=== PATIENT | female | born 2000 | race American Indian/Alaskan Native ===

== ENCOUNTER 2020-08-13 22:39 | Emergency (ER) | payer OTHER ==
[2020-08-13] MEDS ORDERED: MORPHINE 4 MG/1 ML INJ IV ONE (23:36)
[2020-08-13] MEDS ORDERED: ONDANSETRON 4 MG/2 ML INJ IV ONE (23:36)
[2020-08-14 00:14] LABS: Basophils % (Auto) 0.2 % (0.0-1.8); Eosinophils % (Auto) 0.2 % (0.0-4.3); Hematocrit 31.1 % (30.3-42.9); Hemoglobin 10.3 gm/dl (10.1-14.3); Lymphocytes # (Auto) 1.3 K/mm3 (1.2-5.4); Lymphocytes % (Auto) 10.1 % (13.4-35.0); Mean Corpuscular HGB Conc 33 % (30-34); Mean Corpuscular Volume 86 fl (79-97); Monocytes # (Auto) 0.5 K/mm3 (0.0-0.8); Monocytes % (Auto) 4.2 % (0.0-7.3); Platelet Count 208 K/mm3 (140-440); Red Blood Count 3.63 M/mm3 (3.65-5.03); Red Cell Distribution Width 16.3 % (13.2-15.2)
--- NOTE | 2020-08-14 00:35 | Emergency Department Report ---
ED Female HPI - General Chief complaint: Vaginal Bleeding Stated complaint: VAGINAL BLEEDING Time Seen by Provider: 08/13/20 23:36 Source: EMS Mode of arrival: Wheelchair Limitations: No Limitations - History of Present Illness Initial comments: Patient is a 20-year-old female presents emergency room with complaints of heavy vaginal bleeding. Patient states that she was approximately 3 months based on LMP (05/07/2020), she states that she went to her PLUG DRILL OPERATOR and was advised that her gestational sac appeared to only be approximately 7 weeks. She states that she goes to [facility]. She states that she was diagnosed with demise. She states that today she was given 4 tablets of misoprostol. She states that she was having significantly heavy bleeding and that it was filling her bathtub. She states that she was having severe abdominal pain. She was able to pass the gestational sac while in the emergency department she said that her pain is relieved. She continues to have bleeding. She denies any fever, nausea, vomiting, diarrhea, back pain, abnormal vaginal discharge, dysuria. This was her first . No past medical history. No allergies medications. - Related Data Previous Rx's Medication Instructions Recorded Last Taken Type Ibuprofen [Motrin 600 MG tab] 600 mg PO Q8H PRN #14 tablet 08/14/20 Unknown Rx Allergies Allergy/AdvReac Type Severity Reaction Status Date / Time No Known Allergies Allergy Verified 08/14/20 01:53 ED Review of Systems ROS: Stated complaint: VAGINAL BLEEDING Other details as noted in HPI Comment: All other systems reviewed and negative ED Past Medical Hx - Past Medical History Previous Medical History?: No - Social History Smoking Status: Never Smoker Substance Use Type: None - Medications Home Medications: Home Medications Medication Instructions Recorded Confirmed Last Taken Type Ibuprofen [Motrin 600 MG tab] 600 mg PO Q8H PRN #14 tablet 08/14/20 Unknown Rx ED Physical Exam - General Limitations: No Limitations General appearance: alert, in no apparent distress - Head Head exam: Present: atraumatic, normocephalic - Eye Eye exam: Present: normal appearance - ENT ENT exam: Present: mucous membranes moist - Respiratory Respiratory exam: Present: normal lung sounds bilaterally. Absent: respiratory distress, wheezes, rales, rhonchi, stridor, chest wall tenderness, accessory muscle use, decreased breath sounds, prolonged expiratory - Cardiovascular Cardiovascular Exam: Present: regular rate, normal rhythm, normal heart sounds. Absent: systolic murmur, diastolic murmur, rubs, gallop - GI/Abdominal GI/Abdominal exam: Present: soft, normal bowel sounds. Absent: distended, tenderness, guarding, rebound, rigid - Speculum exam: Present: other (neuropsychiatric aide: franklyn, tech, there is active bleeding present, there are clots in the vaginal vault, cervical os is open and appears to be product of conception at the opening, attempted to use forceps but unable to remove) - Neurological Exam Neurological exam: Present: alert, oriented X3 - Psychiatric Psychiatric exam: Present: normal affect, normal mood - Skin Skin exam: Present: warm, dry, intact ED Course Vital Signs 08/13/20 23:41 Temperature 99.8 F H Pulse Rate 87 Respiratory 14 Rate Blood Pressure 108/67 [Right] O2 Sat by Pulse 98 Oximetry - Consultations Consultation #1: 08/14/20 01:[address] Bangura, PLUG DRILL OPERATOR he advised to give patient Methergine 0.2 mg IM and he will evaluate patient in the emergency department 08/14/20 02:33 Dr. Bangura, PLUG DRILL OPERATOR is at bedside with patient 08/14/20 02:[address] Bangura, INTEL ANALYST at bedside for patient's pelvic examination, he was able to remove some tissue from the opening of the cervix, patient states that she did not want to continue with any further removal and states that she will come back if her symptoms worsen, he advised to write patient ibuprofen and have her follow-up with PLUG DRILL OPERATOR and patient was given strict return precautions ED Medical Decision Making - Lab Data Result diagrams: 08/14/20 00:01 08/14/20 00:01 Lab Results 08/14/20 08/14/20 08/14/20 Range/Units 00:01 00:01 00:01 WBC 12.6 H (4.5-11.0) K/mm3 RBC 3.63 L (3.65-5.03) M/mm3 Hgb 10.3 (10.1-14.3) gm/dl Hct 31.1 (30.3-42.9) % MCV 86 (79-97) fl MCH 28 (28-32) pg MCHC 33 (30-34) % RDW 16.3 H (13.2-15.2) % Plt Count 208 (140-440) K/mm3 Lymph % (Auto) 10.1 L (13.4-35.0) % Kidder % (Auto) 4.2 (0.0-7.3) % Eos % (Auto) 0.2 (0.0-4.3) % Baso % (Auto) 0.2 (0.0-1.8) % Lymph # (Auto) 1.3 (1.2-5.4) K/mm3 Kidder # (Auto) 0.5 (0.0-0.8) K/mm3 Eos # (Auto) 0.0 (0.0-0.4) K/mm3 Baso # (Auto) 0.0 (0.0-0.1) K/mm3 Seg Neutrophils % 85.3 H (40.0-70.0) % Seg Neutrophils # 10.7 H (1.8-7.7) K/mm3 Sodium 134 L (137-145) mmol/L Potassium 4.5 (3.6-5.0) mmol/L Chloride 105.1 (98-107) mmol/L Carbon Dioxide 17 L (22-30) mmol/L Anion Gap 16 mmol/L BUN 5 L (7-17) mg/dL Creatinine 0.5 L (0.6-1.2) mg/dL Estimated GFR > 60 ml/min BUN/Creatinine Ratio 10 % Glucose 159 H (65-100) mg/dL Calcium 8.2 L (8.4-10.2) mg/dL Total Bilirubin < 0.20 (0.1-1.2) mg/dL AST 25 (5-40) units/L ALT 11 (7-56) units/L Alkaline Phosphatase 81 (35-129) units/L Total Protein 6.2 L (6.3-8.2) g/dL Albumin 3.2 L (3.9-5) g/dL Albumin/Globulin Ratio 1.1 % HCG, Quant 551.9 H (0-4) mIU/mL Blood Type 08/14/20 Range/Units 00:01 WBC (4.5-11.0) K/mm3 RBC (3.65-5.03) M/mm3 Hgb (10.1-14.3) gm/dl Hct (30.3-42.9) % MCV (79-97) fl MCH (28-32) pg MCHC (30-34) % RDW (13.2-15.2) % Plt Count (140-440) K/mm3 Lymph % (Auto) (13.4-35.0) % Kidder % (Auto) (0.0-7.3) % Eos % (Auto) (0.0-4.3) % Baso % (Auto) (0.0-1.8) % Lymph # (Auto) (1.2-5.4) K/mm3 Kidder # (Auto) (0.0-0.8) K/mm3 Eos # (Auto) (0.0-0.4) K/mm3 Baso # (Auto) (0.0-0.1) K/mm3 Seg Neutrophils % (40.0-70.0) % Seg Neutrophils # (1.8-7.7) K/mm3 Sodium (137-145) mmol/L Potassium (3.6-5.0) mmol/L Chloride (98-107) mmol/L Carbon Dioxide (22-30) mmol/L Anion Gap mmol/L BUN (7-17) mg/dL Creatinine (0.6-1.2) mg/dL Estimated GFR ml/min BUN/Creatinine Ratio % Glucose (65-100) mg/dL Calcium (8.4-10.2) mg/dL Total Bilirubin (0.1-1.2) mg/dL AST (5-40) units/L ALT (7-56) units/L Alkaline Phosphatase (35-129) units/L Total Protein (6.3-8.2) g/dL Albumin (3.9-5) g/dL Albumin/Globulin Ratio % HCG, Quant (0-4) mIU/mL Blood Type O NEGATIVE - Radiology Data Radiology results: report reviewed Ordering Physician: JESSE OCAMPO Date of Service: 08/13/20 Procedure(s): US OB <= 14 weeks fetus Accession Number(s): [id number] cc: JESSE OCAMPO ULTRASOUND PELVIS INDICATION: demise, pill , heavy bleeding/clots. TECHNIQUE: Transabdominal. Duplex Color Doppler used: Yes. COMPARISON: None available FINDINGS: Uterus: Present. Size: 8.9 x 4.9 x 5.3 cm. Endometrial complex: No retained products or intrauterine . measuring 4.9 cm. Mass lesions: None. Additional findings: None. Right Ovary --nonvisualized. Left Ovary--nonvisualized. Urinary Bladder: Normal. Free Fluid: Mild. Additional Findings: None. IMPRESSION: 1. No intrauterine or retained products. 2. Mild free fluid. 3. Ovaries nonvisualized. No adnexal abnormality. Signer Name: Erik Holder MD Signed: 08/14/2020 1:28 AM Workstation Name: [id number] Transcribed By: YOUNG Dictated By: Erik Holder MD Electronically Authenticated By: Erik Holder MD Signed Date/Time: 08/14/20127 DD/ 6 TD/TT: - Medical Decision Making Patient is a 20-year-old female presents emergency room with complaints of heavy vaginal bleeding. Patient states that she was approximately 3 months based on LMP (05/07/2020), she states that she went to her PLUG DRILL OPERATOR and was advised that her gestational sac appeared to only be approximately 7 weeks. She states that she goes to [facility]. She states that she was diagnosed with demise. She states that today she was given 4 tablets of misoprostol. She states that she was having significantly heavy bleeding and that it was filling her bathtub. She states that she was having severe a bdominal pain. She was able to pass the gestational sac while in the emergency department she said that her pain is relieved. She continues to have bleeding. She denies any fever, nausea, vomiting, diarrhea, back pain, abnormal vaginal discharge, dysuria. This was her first . No past medical history. No allergies medications. Vitals are stable. Labs with mildly elevated white blood Cell count at 12, hCG quant is 551, patient is Rh-. OB ultrasound: 1. No intrauterine or retained products. 2. Mild free fluid. 3. Ovaries nonvisualized. No adnexal abnormality. Pelvic examination:neuropsychiatric aide: franklyn, tech, there is active bleeding present, there are clots in the vaginal vault, cervical os is open and appears to be product of conception at the opening, attempted to use forceps but unable to remove. Spoke with Dr. Bangura, PLUG DRILL OPERATOR he advised to give patient Methergine 0.2 mg IM and he will evaluate patient in the emergency department. Chaperoned Dr. Bangura, INTEL ANALYST at bedside for patient's pelvic examination, he was able to remove some tissue from the opening of the cervix, patient states that she did not want to continue with any further removal and states that she will come back if her symptoms worsen, he advised to write patient ibuprofen and have her follow-up with PLUG DRILL OPERATOR and patient was given strict return precautions. Critical care attestation.: If time is entered above; I have spent that time in minutes in the direct care of this critically ill patient, excluding procedure time. ED Disposition Clinical Impression: Miscarriage, Episode of heavy vaginal bleeding Rh negative status during Qualifiers: Trimester: unspecified trimester Qualified Code(s): O26.899 - Other specified related conditions, unspecified trimester; Z67.91 - Unspecified blood type, Rh negative Disposition: TO HOME OR SELFCARE Is pt being admited?: No Does the pt Need Aspirin: No Condition: Stable Instructions: Miscarriage Additional Instructions: Please take medication as prescribed as needed. Increase your water intake. Follow-up with your PLUG DRILL OPERATOR in the next few days. Return to emergency room immediately for any new or worsening symptoms including but not limited to worsening pain, worsening bleeding, fever, vomiting, diarrhea, changing more t martinez 3 pads in an hour, etc. Prescriptions: Ibuprofen [Motrin 600 MG tab] 600 mg PO Q8H PRN #14 tablet PRN Reason: Pain Referrals: PRIMARY CARE, [Primary Care Provider] - 2-[address] [facility] [Provider Group] - 2-3 Days Time of Disposition: 02:51 Print Language: DANISH
[2020-08-14 01:08] LABS: Alanine Aminotransferase 11 units/L (7-56); Albumin 3.2 g/dL (3.9-5); Blood Urea Nitrogen 5 mg/dL (7-17); Calcium 8.2 mg/dL (8.4-10.2); Hemolysis Index 139
[2020-08-14 01:09] LABS: BUN/Creatinine Ratio 10
--- NOTE | 2020-08-14 01:33 | Ultrasound Report ---
ULTRASOUND PELVIS INDICATION: demise, pill , heavy bleeding/clots. TECHNIQUE: Transabdominal. Duplex Color Doppler used: Yes. COMPARISON: None available FINDINGS: Uterus: Present. Size: 8.9 x 4.9 x 5.3 cm. Endometrial complex: No retained products or intrauterine . measuring 4.9 cm. Mass lesions: None. Additional findings: None. Right Ovary --nonvisualized. Left Ovary--nonvisualized. Urinary Bladder: Normal. Free Fluid: Mild. Additional Findings: None. IMPRESSION: 1. No intrauterine or retained products. 2. Mild free fluid. 3. Ovaries nonvisualized. No adnexal abnormality. Signer Name: Erik Holder MD Signed: 08/14/2020 1:28 AM Workstation Name: [id number]
[2020-08-14] MEDS ORDERED: METHYLERGONOVINE MALEATE 0.2 MG/ML VIAL IM ONE (01:43)
--- NOTE | 2020-08-14 02:55 | Consultation ---
History of Present Illness Consult date: 08/14/20 Requesting physician: DELVIN ARRIAGA Reason for consult: other (vaginal bleeding) History of present illness: 20 yo G1 at 14w1d by LMP (05/07/20) presenting with known first trimester demise managed at patient's primary OBGYN office medically with misoprostol 800mg po x 1. Patient reports having a period of 2-3 months of expectant management prior to medical management. Patient reports calling the EMS after significant passage of clots and tissue that patient reports was more than she expected. When in the ED, patient found to have thin endometrium without retained POC. Most likely completed, if not near completed AB. 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 Family/Genetic History: none Social history: no significant social history - Obstetrical History : 1 Para: 0 Spontaneous Abortions: 1 Number of Living Children: 0 Medications and Allergies Allergies Allergy/AdvReac Type Severity Reaction Status Date / Time No Known Allergies Allergy Verified 08/14/20 01:53 Review of Systems All systems: negative (expect HPI) - Vital Signs Vital signs: Vital Signs Temp Pulse Resp BP Pulse Ox 99.8 F H 87 14 108/67 98 08/13/20 23:41 08/13/20 23:41 08/13/20 23:41 08/13/20 23:41 08/13/20 23:41 Temp Pulse Resp BP Pulse Ox 99.8 F H 87 14 108/67 98 08/13/20 23:41 08/13/20 23:41 08/13/20 23:41 08/13/20 23:41 08/13/20 23:41 - Physical Exam Abdomen: Positive: normal appearance, soft Cervix: Positive: other (tissue at os, removed with forceps) Uterus: Positive: normal size Results Result Diagrams: 08/14/20 00:01 08/14/20 00:01 Abnormal lab results 08/14/20 08/14/20 08/14/20 Range/Units 00:01 00:01 00:01 WBC 12.6 H (4.5-11.0) K/mm3 RBC 3.63 L (3.65-5.03) M/mm3 RDW 16.3 H (13.2-15.2) % Lymph % (Auto) 10.1 L (13.4-35.0) % Seg Neutrophils % 85.3 H (40.0-70.0) % Seg Neutrophils # 10.7 H (1.8-7.7) K/mm3 Sodium 134 L (137-145) mmol/L Carbon Dioxide 17 L (22-30) mmol/L BUN 5 L (7-17) mg/dL Creatinine 0.5 L (0.6-1.2) mg/dL Glucose 159 H (65-100) mg/dL Calcium 8.2 L (8.4-10.2) mg/dL Total Protein 6.2 L (6.3-8.2) g/dL Albumin 3.2 L (3.9-5) g/dL HCG, Quant 551.9 H (0-4) mIU/mL All other labs normal. Assessment and Plan - Patient Problems (1) Complete Current Visit: Yes Status: Acute Plan to address problem: Favor completed or near complete given US findings without retained POC, thin endometrium and cervix with small scant tissue at the external cervical os. s/p Methergine 200mcg in ED. Patient declines further management including D&C. --Expectant management per patient request. Recommend follow up with primary OBGYN in 24-48H. --Pain management --Ok for discharge home
[2020-08-14 04:09] VITALS: BP 109/52
== END 2020-08-14 04:25 | disposition home or self-care (01) ==
LOC: ED 22:39
DX: O03.9 Complete or unspecified spontaneous abortion without complication (principal); O26.891 Other specified pregnancy related conditions, first trimester; Z67.91 Unspecified blood type, Rh negative; Z79.899 Other long term (current) drug therapy
CPT/HCPCS: 36415; 36430; 76801; 80053; 84702; 85025; 85461; 86850; 86900; 86901; 88305; 96372; 99284; J2210; J2405; J2790; J2270